=== PATIENT | male | born 1975 | race Caucasian/White ===

== ENCOUNTER 2020-11-07 16:44 | Emergency (ER) | payer OTHER ==
[2020-11-07] MEDS ORDERED: Cephalexin 500 MG Cap ONE (17:00)
[2020-11-07] MEDS ORDERED: Diphtheria/Tetanus Toxoids,Adult (Td) 0.5 ML SDV IM ONE (17:15)
[2020-11-07] MEDS ORDERED: Diphtheria,Pertussis(Acell),Tetanus Vaccine 0.5 ML SDV IM ONE (17:29)
--- NOTE | 2020-11-07 17:35 | EDM.PDOC ---
ED HPI GENERAL MEDICAL PROBLEM - General Chief Complaint: Laceration Stated Complaint: Fish hook in right thumb Time Seen by Provider: 11/07/20 17:00 Source of Information: Reports: Patient History Limitations: Reports: No Limitations - History of Present Illness INITIAL COMMENTS - FREE TEXT/NARRATIVE: 45-year-old male presents to the ED complaining of a trouble hook embedded in his right thumb lateral nail fold. Patient has no other complaints. Patient denies chest pain, shortness of breath, dizzy lightheaded, syncope/near syncope or nausea and vomiting. Patient had tried to remove clock using monofilament fishing line technique to no avail. Requesting that it be numbed up and removed. Patient denies any history of heart, lung, or diabetes. Patient denies any alcohol use today, patient is a smoker, no recreational drugs. - Related Data Allergies Allergy/AdvReac Type Severity Reaction Status Date / Time No Known Allergies Allergy Verified 11/07/20 16:57 Home Meds: Home Meds cephALEXin [Keflex] 500 mg PO Q6HR 5 Days #20 cap 11/07/20 [Rx] Social & Family History - Tobacco Use Tobacco Use Status *Q: Current Every Day Tobacco User Tobacco Use Within Last Twelve Months: Cigarettes ED ROS GENERAL - Review of Systems Review Of Systems: Comprehensive ROS is negative, except as noted in HPI. ED EXAM, SKIN/RASH Exam: See Below Text/Narrative:: Focused exam limited to the right hand: Patient has a medium size treble hook with 1 hook embedded in his right thumb on the lateral nail fold margin, Marii is not seen. No signs of infection, hook appears to be grossly clean. This is the extent of the physical exam. ED SKIN PROCEDURES - Foreign Body Removal Indication:: Trouble hook right lateral thumb nail fold margin: Wound site was cleaned with chlorhexidine prior to injection. Anesthesia was achieved with a field block to the distal thumb with 2% lidocaine without epinephrine. Uninvolved barbs were removed with wire snips. Using a vice balance wheel screw hole tapper the involved hook was pushed through exposing the marii marii was then snipped as well pulling the remaining hook back through the wound. Wound was then again cleaned, bacitracin was applied and wound was dressed and bandaged. Course - Orders/Labs/Meds Orders: Active Orders 24 hr Category Date Time Status Vaccine to be Administered/Admin Charge [RC] ASDIRECTED Care 11/07/20 17:30 Ordered Meds: Medications Discontinued Medications Generic Name Dose Route Start Last Admin Trade Name Rambo PRN Reason Stop Dose Admin Diphtheria/Tetanus/Acell Pertussis 0.5 ml 11/07/20 17:29 11/07/20 17:40 Diphtheria,Pertussis(Acell),Tetanus Vaccine 0.5 Ml Sdv IM 11/07/20 17:30 Not Given .ONCE ONE Tetanus/Diphtheria Toxoids 0.5 ml 11/07/20 17:15 Diphtheria/Tetanus Toxoids,Adult (Td) 0.5 Ml Sdv IM 11/07/20 17:16 .ONCE ONE Departure - Departure Time of Disposition: 17:20 Disposition: Home, Self-Care 01 Condition: Good Clinical Impression: Foreign body, Removal of foreign body - Discharge Information *PRESCRIPTION DRUG MONITORING PROGRAM REVIEWED*: No *COPY OF PRESCRIPTION DRUG MONITORING REPORT IN PATIENT JERAD: No Prescriptions: cephALEXin [Keflex] 500 mg PO Q6HR 5 Days #20 cap Instructions: Cephalexin Tablets or Capsules Forms: ED Department Discharge Additional Instructions: Follow-up with PCP if signs of infection : redness, swelling, warmth. Take Keflex as ordered. - My Orders Last 24 Hours: My Active Orders 11/07/20 17:30 Vaccine to be Administered/Admin Charge [RC] ASDIRECTED - Assessment/Plan Last 24 Hours: My Active Orders 11/07/20 17:30 Vaccine to be Administered/Admin Charge [RC] ASDIRECTED Assessment:: Assessment and plan: Clean the wound site with chlorhexidine, achieved anesthesia with 2% lidocaine without epinephrine/field block, hook removal, wound care/dressing and bandage, tetanus shot as his last was greater than 10 years, patient sent home with Keflex 500 mg every 6 hours for 5 days. Patient discharged with instructions lookout for signs of infection to include redness, heat, swelling, pain and to follow-up with primary care provider.
[2020-11-07] MEDS ORDERED: Lidocaine 1% 30 ML SDV INJECT ONE (17:39)
== END 2020-11-07 17:20 | disposition home or self-care (01) ==
LOC: LB.ED 16:44
DX: S60.351A Superficial foreign body of right thumb, initial encounter (principal); F17.210 Nicotine dependence, cigarettes, uncomplicated; Z23 Encounter for immunization; W45.8XXA Other foreign body or object entering through skin, initial encounter
CPT/HCPCS: 90471; 90714; 99282; A9270-GY